=== PATIENT | female | born 1960 | race Caucasian/White ===

== ENCOUNTER → 2024-06-09 13:44 | Outpatient (REF) | payer OTHER, SELFPAY | LOC: HWRAD 13:44 | PROVIDERS: ATTENDING PHYSICIAN Family Medicine | DX: R22.2 Localized swelling, mass and lump, trunk (principal); Z12.31 Encounter for screening mammogram for malignant neoplasm of breast | CPT/HCPCS: 76882 ==

== ENCOUNTER → 2024-07-14 14:53 | Outpatient (REF) | payer OTHER, SELFPAY | LOC: MRI 3T 14:53 | PROVIDERS: ATTENDING PHYSICIAN Surgery; FAMILY PHYSICIAN Family Medicine | DX: M79.89 Other specified soft tissue disorders (principal) | CPT/HCPCS: 73220; A9575 ==

== ENCOUNTER → 2024-09-09 06:25 | Outpatient (REF) | payer OTHER, SELFPAY | LOC: RAD 06:25 | PROVIDERS: ATTENDING PHYSICIAN Physician Assistant; FAMILY PHYSICIAN Family Medicine | DX: L81.9 Disorder of pigmentation, unspecified (principal); M79.674 Pain in right toe(s); M79.675 Pain in left toe(s) | CPT/HCPCS: 73630; 93922; 93925 ==

== ENCOUNTER → 2024-12-22 15:26 | Outpatient (REF) | payer OTHER, SELFPAY | LOC: HWRAD 15:26 | PROVIDERS: ATTENDING PHYSICIAN Podiatrist Foot & Ankle Surgery; FAMILY PHYSICIAN Family Medicine | DX: M19.072 Primary osteoarthritis, left ankle and foot (principal); M19.071 Primary osteoarthritis, right ankle and foot | CPT/HCPCS: 73630 ==